=== PATIENT | female | born 1945 | race Two or more races ===

== ENCOUNTER 2018-01-19 08:29 | Day surgery (SDC) | payer OTHER ==
[~2018-01-19] VITALS: Ht 165.1 cm; Wt 93.4 kg
[2018-01-19] VITALS (9 sets, daily range): BP systolic 126–148; BP diastolic 66–82
--- NOTE | 2018-01-19 07:11 | Anethesia Preoperative Eval ---
Anesthesia Pre-op PMH/ROS General Date of Evaluation: Jan 19, 2018 Time of Evaluation: 07:11 Anesthesiologist: ramya ASA Score: ASA 3 Mallampati Score Class I : Soft palate, uvula, fauces, pillars visible Class II: Soft palate, uvula, fauces visible Class III: Soft palate, base of uvula visible Class IV: Only hard plate visible Mallampati Classification: Class II - ella Surgeon: ella Diagnosis: rectal bleeding, diarrhea Surgical Procedure: colonoscopy w/bx Anesthesia History: none Social History: smoking - former smoker Family History: no anesthesia problems Allergies: Coded Allergies: CODEINE (Verified Allergy, Intermediate, RASH, 01/19/18) Medications: see eMAR Past Medical History Cardiovascular: Reports: HTN, other - hypercholesterolemia Pulmonary: Reports: WALT - uses CPAP, other - pneumonia, bronchitis, Musculoskeletal/Integumentary: Reports: OA Anesthesia Pre-op Phys. Exam Physician Exam Constitutional: NAD Neurologic: CN 2-12 intact Cardiovascular: RRR Respiratory: CTA Gastrointestinal: S/NT/ND Airway Exam Mallampati Score: Class II MO: full Neck: supple TMD: 2fb ROM: full Teeth: intact Anesthesia Pre-op A/P Risk Assessment & Plan Assessment: asa3 Plan: mac Status Change Before Surgery: No Pre-Antibiotics Drug: Talya Coleman MD Jan 19, 2018 07:11
[2018-01-19] MEDS ORDERED: TEMAZEPAM30 MG ORAL (10:41)
[2018-01-19] MEDS ORDERED: PRIMIDONE50 MG PO (10:41)
[2018-01-19] MEDS ORDERED: GABAPENTIN300 MG ORAL (10:42)
[2018-01-19] MEDS ORDERED: DILT-XR180 MG PO (10:43)
[2018-01-19] MEDS ORDERED: LANSOPRAZOLE30 MG ORAL (10:43)
[2018-01-19] MEDS ORDERED: ATORVASTATIN CA20 MG ORAL (10:44)
[2018-01-19] MEDS ORDERED: LATANOPROST2.5 ML BOTH EYES (10:44)
[2018-01-19] MEDS ORDERED: MONTELUKAST SOD10 MG ORAL (10:44)
[2018-01-19] MEDS ORDERED: FLUTICASONE PRO16 G1 NASAL (10:45)
[2018-01-19] MEDS ORDERED: Propofol 200mg/20ml IV ONE (11:30)
[2018-01-19] MEDS ORDERED: Lidocaine 1% MPF 10mg/ml 5ml ONE (11:30)
[2018-01-19] MEDS ORDERED: LR 1000ml ONE (11:30)
[2018-01-19] MEDS ORDERED: Atropine Sulfate 0.4mg/ml inj ONE (11:30)
--- NOTE | 2018-01-19 11:33 | Short Stay Surgery H&P ---
History of Present Illness History of Present Illness Chief Complaint Diarrhea and abdominal pains. FILIBERTO Wallace is a 72 year old female who was admitted on for abdominal pains and diarrhea.* Patient History Allergies: Coded Allergies: CODEINE (Verified Allergy, Intermediate, RASH, 01/19/18) PAST MEDICAL HISTORY: (1) Lumbar disc disease (2) Arthritis (3) Hypertension (4) Asthma (5) Sleep apnea (6) Hyperlipidemia Medication History Scheduled Atorvastatin Calcium* (Atorvastatin Calcium*), 20 MG ORAL BEDTIME, (Reported) Diltiazem Hcl (Dilt-Xr), 180 MG PO DAILY, (Reported) Fluticasone Propionate* (Fluticasone Propionate*), 2 SPRAY NASAL DAILY, ( Reported) Gabapentin* (Gabapentin*), 300 MG ORAL THREE TIMES A DAY, (Reported) Lansoprazole* (Lansoprazole*), 30 MG ORAL DAILY, (Reported) Latanoprost* (Xalatan*), 1 DROP BOTH EYES BEDTIME, (Reported) Montelukast Sodium* (Montelukast Sodium*), 10 MG ORAL DAILY, (Reported) Primidone* (Mysoline*), 50 MG PO TID, (Reported) Scheduled PRN Temazepam* (Temazepam*), 30 MG ORAL BEDTIME PRN for Insomnia, (Reported) Review of Systems Cardiovascular: Reports: hypertension Respiratory: Reports: asthma, CPAP Skeletal: Reports: trauma Gastrointestinal: Reports: other Genitourinary: Reports: no symptoms 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 Summary of Findings See the report Attestation Are the patient's medical conditions optimized for surgery? Attestation Response: yes Ester Johns MD Jan 19, 2018 11:33
--- NOTE | 2018-01-19 11:34 | Pre-Procedure Note/Attestation ---
Pre-Procedure Note/Attestation Complete Prior to Procedure Planned Procedure: left Procedure Narrative: Examination of the colon via endoscopy Indications for Procedure Pre-Operative Diagnosis: R/O colitis Attestation I attest that I discussed the nature of the procedure; its benefits; risks and complications; and alternatives (and the risks and benefits of such alternatives ), prior to the procedure, with the patient (or the patient's legal herbicide service sales representative). I attest that, if there was a reasonable possibility of needing a blood transfusion, the patient (or the patient's legal herbicide service sales representative) was given the [facility] standardized written summary, pursuant to the [place] Blood Safety Act ([place] Health and Safety Code # 1645, as amended). I attest that I re-evaluated the patient just prior to the surgery and that there has been no change in the patient's H&P, except as documented below: Ester Johns MD Jan 19, 2018 11:34
--- NOTE | 2018-01-19 12:07 | Discharge Instructions ---
Discharge Instructions Discharge Instructions Follow up with: See the doctor in office after two weeks. For Congestive Heart Failure Reminder Report to your physician any weight gain of 5 pounds or more in one week. Ester Johns MD Jan 19, 2018 12:07
--- NOTE | 2018-01-19 12:07 | Endoscopy Procedure Note ---
Endoscopy Procedure Note General Indication for Procedure: Diarrhea and rectal bleeding Procedures Performed: colonoscopy - Extremely difficult colonoscopy due to poor colon clean up. Findings of 1 Cm pendulated polypoid lesion found at 35 CM from anal opening removed by hot forceps but could not be retrieved due to poor colon clean up and stools in the nirmal, looked beningn . Another 3mm hyperplastic polypoid lesion found in mid transverse colon removed by biopsy forceps sent to pathology lab. A random colon biopsy also obtained from mid transverse colon. No evidence of colitis see endoscopically. Pt Tolerated Procedure Well: Yes Estimated Blood Loss: none Anesthesia Anesthesiologist: Dr. Knowles Anesthesia: moderate sedation Medications Medication Given: see anesthesia record Inserted Devices Implant(s) used?: No Quality Quality of Bowel Preparation: Poor Did scope reach the cecum?: Yes Was there any complications?: No GI Core Measures 50 yrs or older w/o bx or poly: Yes 10yrs. F/U not recommended: Yes 10 yrs. F/U needed: Yes 18 years or older w/prev. colo: Yes Med reason:<3 yrs.: System Reason:<3 yrs.: Last colonoscopy >= to 3yrs: Yes Ester Johns MD Jan 19, 2018 12:07
--- NOTE | 2018-01-19 14:11 | Immediate Post-Op Evaluation ---
Immediate Post-Op Evalulation Immediate Post-Op Evalulation Procedure: colonoscopy w/bx Date of Evaluation: Jan 19, 2018 Time of Evaluation: 12:24 IV Fluids: 350ml lr Blood Products: none Estimated Blood Loss: neglgible Blood Pressure Systolic: 143 Blood Pressure Diastolic: 73 Pulse Rate: 58 Respiratory Rate: 18 O2 Sat by Pulse Oximetry: 100 Temperature (Fahrenheit): 98.1 Pain Score (1-10): 0 Nausea: No Vomiting: No Complications none Patient Status: awake, reacts, patent Hydration Status: adequate Drug: Talya Coleman MD Jan 19, 2018 14:11
[2018-01-19] MEDS ORDERED: LR 1000ml 1,000 ML IVLG SCH (14:13)
--- NOTE | 2018-01-19 14:13 | 48 Hour Post Anesthesia Eval ---
Post Anesthesia Evaluation Procedure: colonoscopy w/bx Date of Evaluation: Jan 19, 2018 Time of Evaluation: 12:26 Blood Pressure Systolic: 147 0: 77 Pulse Rate: 57 Respiratory Rate: 18 Temperature (Fahrenheit): 98.1 O2 Sat by Pulse Oximetry: 100 Airway: patent Nausea: No Vomiting: No Pain Intensity: 0 Hydration Status: adequate Cardiopulmonary Status: stable Mental Status/LOC: patient returned to baseline Post-Anesthesia Complications: none Follow-up care needed: N/A Talya Stratton MD Jan 19, 2018 14:13
[2018-01-19] MEDS ORDERED: fentaNYL 100 mcg/2 mL IV PRN (14:15)
[2018-01-19] MEDS ORDERED: DiphenhydrAMINE 50mg/ml Inj IVP PRN (14:15)
[2018-01-19] MEDS ORDERED: Atropine Inj 1mg/10ml Syr IV PRN (14:15)
[2018-01-19] MEDS ORDERED: Midazolam 2mg/2ml Inj IVP PRN (14:15)
--- NOTE | 2018-01-19 18:45 | Pre-op HX & Phy Repo 2 SIG ---
DATE OF ADMISSION: 01/19/2018 REFERRING PHYSICIAN: Andrew Maynard M.D. HISTORY OF PRESENT ILLNESS: The patient is a 72-year-old female, who is being seen prior to undergoing the procedure of colonoscopic examination, for which she has been scheduled and authorized to receive evaluation of gastrointestinal condition that she has suffered subsequent to her work injury. The patient basically reports that she has had history of diarrhea, more frequent bowel movements, but occasionally they are formed along with very rare episodes of rectal bleeding in the past. She reported that subsequent to her work injury that she had to the dorsal lumbar disc and she had to have operation, she started to have these symptoms. She has, however, never been diagnosed to have any gastrointestinal condition that also the cause of these bowel movements and possible diarrhea episodes. She reports that some times, she goes to the bathroom up to 6 to 7 times and the stools are small and she does have evidence of fecal incontinence and leaking out stool into her pants. Mostly, she has been taking Imodium, which has caused constipation on occasions. The abdominal pain basically generalized and are moderate in nature and sometimes, the pain is radiating towards her back. She has had history of gastroesophageal reflux and heartburn and has been treated with Prevacid. She is taking it at occasions and at this time as well. Sometimes she bleeds. She reports that this condition could be secondary to hemorrhoids that she might have had. PAST MEDICAL HISTORY: The patient has had diagnoses for hypertension, arthritis, asthma, hyperlipidemia, and also sleep apnea that she uses a CPAP for. Also, there has been history of unknown pancreatic disorder ? PAST SURGICAL HISTORY: Three dorsolumbar surgeries for disc disease and also 3 knee surgeries with fusion operation from the abdomen for dorsal lumbar disk disease. MEDICATIONS: Current medications is vitamin B complex, primidone, gabapentin, Advair-Diskus, fluticasone propionate, albuterol, Prevacid, Diltiazem, tramadol, Creon, and Metamucil with Singulair and Lipitor. ALLERGIES: To codeine. HABITS: The applicant denies drinking alcohol. Does not smoke cigarettes. REVIEW OF SYSTEMS: Basically history of present illness. PHYSICAL EXAMINATION: GENERAL: Reveals an alert and oriented female, who does not seem to be in any acute distress. She looks well developed and obese. She answers the questions quite properly. VITAL SIGNS: Stable. HEENT: Normocephalic. Pupils equal in size and reactive to light and accommodation. No jaundice. NECK: Supple. No JVD, thyromegaly, or adenopathy. CHEST: Clear to auscultation. No evidence of rales or rhonchi. HEART: S1 and S2 normal. Regular rhythm. No gallops or murmur. ABDOMEN: Reveals evidence of tenderness, mostly all over the abdomen with obesity, but there is no organomegaly at this time. No palpable mass noted. No percussion tenderness. EXTREMITIES: Unremarkable. No pretibial edema, cyanosis, or clubbing. CENTRAL NERVOUS SYSTEM: Grossly normal. PRELIMINARY IMPRESSION PREOPERATIVE: 1. Chronic diarrhea of uncertain etiology, rule out underlying irritable bowel syndrome with periods of constipation aggravated by anxiety and stress related to work accident, doubt inflammatory bowel disease such as Crohn's or microcytic colitis? 2. History of unknown cause of rectal bleeding, rule out hemorrhoids versus colitis. 3. History of gastroesophageal reflux, which is stable at this time. 4. Sleep apnea. 5. Obesity. 6. Hypertension. 7. Hyperlipidemia. RECOMMENDATIONS: The applicant seems to be stable at this time to undergo the procedure of the colonoscopy for evaluation of her GI problems that she has suffered subsequent to work injury. She understands the risks and benefits and signs the consent. Said Manasa Johns DR: PA JOB#: [id number] CC:
--- NOTE | 2018-01-19 21:44 | Procedure Note ---
DATE OF PROCEDURE: 01/19/2018 PROCEDURE: Total colonoscopy with multiple polypectomies. SURGEON: Ester Johns M.D. REFERRING PHYSICIAN: Andrew Maynard M.D. PREOPERATIVE DIAGNOSIS: Chronic abdominal pain and diarrhea with rectal bleeding, rule out inflammatory bowel disease. POSTOPERATIVE DIAGNOSES: 1. Extremely difficult total colonoscopy with significant redundancy of the colon and poor colonic preparation. 2. Evidence of minimal internal hemorrhoids, mostly the cause of occasional rectal bleeding. 3. Incidental findings of 2 polyps in different locations of the colon, one is 1 cm pedunculated polypoid lesions found over the level of 35 cm from the anal opening, which was removed with hot snare and the other one 3 mm hyperplastic polypoid lesion located in the midtransverse colon, removed by cold biopsy forceps. 4. Recommendation was made that the patient should receive another colonoscopic examination within 2 to 3 years for followup of colon polyp formation. This was also discussed with the patient (colon polyps are not worker compensation related condition). MEDICATION USED: Per Dr. Knowles, anesthesiologist. INSTRUMENT: GIF Olympus video colonoscope. DESCRIPTION OF PROCEDURE: The patient, after arriving in endoscopy unit, was told about risks and benefits of the procedure of colonoscopy, which she accepted and signed informed consent. At this time, she was put on the left lateral decubitus position. After adequate IV sedation, the scope was gently passed through the anal area and a retroflexion maneuver, which was applied here revealed evidence of minimal internal hemorrhoids, which were not friable at this time. The rest of the rectum looked normal, however, there was evidence of liquidy stool and formed feces in the colon all along, particularly in the left colon, making the examination significantly difficult, as the patient had high redundancy of the left colonic area as well. Multiple irrigations had to be given constantly to be able to go through this redundant and twisted colon, which was filled with formed and liquidy stools. As such, the small diminutive polypoid lesion of the colon could not be ruled out, however, at the level of 35 cm from anus, there was a lesion, which was compatible with a pedunculated, tubular-like polypoid lesion, which looked benign on the surface was seen. It was grabbed with hot snare forceps and totally removed; however, due to significant amount of stool in the colon, it could not be retrieved. However, the scope was gradually passed toward the splenic flexure. It was guided into transverse colon all the way. In the middle of transverse colon, there was seen another 3-4 mm somewhat flat polypoid lesion consistent with hyperplastic polyp, which was removed totally by cold biopsy forceps. At this time, the scope was advanced further down into the hepatic flexure, guided into the right colon all the way to the base of the cecum and that revealed no other abnormalities, though as I mentioned the colon cleanup was significantly poor. At this time, within 7 minutes, the scope was gradually pulled out and re-evaluation of the colon as much as it was possible with the presence of the stools, did not reveal any other major pathology. The patient tolerated the procedure well and left the endoscopy room in a good condition. The patient and the family were advised to follow with the primary caregiver outside the worker compensation for another followup colonoscopy in another couple of years because of the patient had history of colon polyp, which is nonindustrial. Said Manasa Johns DR: PA JOB#: [id number] CC:
== END 2018-01-19 13:15 | disposition home or self-care (01) ==
LOC: GAS 08:29
DX: K62.5 Hemorrhage of anus and rectum (principal); K63.5 Polyp of colon; K64.8 Other hemorrhoids; G89.29 Other chronic pain; R10.9 Unspecified abdominal pain; R19.7 Diarrhea, unspecified; I10 Essential (primary) hypertension; M19.90 Unspecified osteoarthritis, unspecified site; J45.909 Unspecified asthma, uncomplicated; E78.5 Hyperlipidemia, unspecified; G47.30 Sleep apnea, unspecified; Z88.6 Allergy status to analgesic agent; Z98.1 Arthrodesis status; K21.9 Gastro-esophageal reflux disease without esophagitis; E66.9 Obesity, unspecified; Z68.34 Body mass index [BMI] 34.0-34.9, adult; M51.36 Other intervertebral disc degeneration, lumbar region
CPT/HCPCS: 45380; J0461; J2704; J7120; 94003; 94150